=== PATIENT | female | born 1970 | race Caucasian/White ===

== ENCOUNTER 2016-04-29 08:10 | Emergency (ER) | payer BC ==
[2006-07-15 06:13] VITALS: BP 145/87
[~2016-04-29] VITALS: Ht 160 cm; Wt 79.5 kg
[~2016-04-29 08:10] MED LIST: ALEVE COLD PO; AMBIEN 10MG10 MG PO; AMETHYST 20 MCG1 TAB PO; AMITRIPTYLINE H25 M1 PO; AMITRIPTYLINE H50 M1 PO; AMITRIPTYLINE10 MG PO; AMITRIPTYLINE25 MG PO; ATIVAN 1MG T1 MG/TAB PO; BCP TD; CALCITRIOL PO; CARAFATE 1GM1 G PO; CELEXA20 MG PO; CEPHALEXIN500 M1 PO; COBAL1000 MCG/M IM; CYMBALTA 60MG60 MG PO; DECADRON 1MG TAB1 MG PO; DESYREL 50MG50 MG PO; DEXADRENE; DEXEDRINE5 MG; DILAUDID 4MG TAB4 MG PO; ESTRADIOL TD; EXALGO16 MG PO; EXALGO32 PO; EXALGO8 MG PO; EXCEDRIN TENSION HA; FIORICET 325 MG1 TAB PO; FLEXERIL10 MG PO; FLINTSTONES COM1 CT1 PO; FLINTSTONES1 CTB PO; HCTZ 25MG TAB25 MG PO; K-DUR20 MEQ PO; KLONOPIN 1MG1 MG PO; KLOR-CON M2020 MEQ PO; LAMICTAL 25MG T25 MG PO; LAMICTAL XR50 MG PO; LAMICTAL150 MG PO; LASIX 40MG TABL40 MG PO; LEXAPRO20 MG; LIDODERM 5% PATC1 EA TP; LOMOTIL 0.025 M1 TAB PO; LORTAB 7.5/5001 TAB PO; LYRICA; MAG-OX 400400 MG/TAB PO; MELATONIN5 M1; MIRAPEX0.25 MG PO; MOBIC15 MG PO; NORCO 325 MG-101 TAB PO; NORCO 325 MG-51 TAB PO; NORCO 325 MG-7.1 TAB PO; NUVIGIL250 MG PO; OPANA10 MG PO; OS CAL; PERCOCET 325 MG1 TAB PO; PHENERGAN 25 TA25 MG PO; PHENERGAN25 MG RC; PHENTERMINE H37.5 MG PO; POSTURE D PO; PREVACID 30MG30 MG PO; PROTONIX 40MG T40 MG PO; PROVIGIL200 MG PO; REGLAN 10MG10 MG/TAB PO; REGLAN 5MG T5 MG/TAB PO; REMERON30 MG PO; RISPERDAL M-TAB0.25 PO; SEASONIQUE1 TAB PO; SINGULAIR10 MG PO; SYMBALTA; TEMOVATE0.05%; VITAMIN D50000 I2 PO; VOLTAREN GEL 1%1 TU TP; Vitamin B12 IM; WELLBUTRIN 100100 MG PO; ZANTAC 150MG T150 MG PO; ZAROXOLYN 2.52.5 MG PO; ZOFRAN ODT4 MG PO; ZOLOFT 50MG50 MG PO; [UNRECOGNIZED DRUG - OTHER]; [UNRECOGNIZED DRUG - OTHER] PO; [UNRECOGNIZED DRUG - OTHER] PO
[2016-04-29 08:15] VITALS: BP 143/81; PULSE 95; TEMP 98.2
[2016-04-29] MEDS ORDERED: FLEXERIL 1010 MG/TAB PO (09:19)
[2016-04-29] MEDS ORDERED: IBU600 MG PO (09:19)
[2016-04-29] MEDS ORDERED: ULTRAM 50MG TAB50 MG PO (09:19)
== END 2016-04-29 09:38 | disposition home or self-care (01) ==
LOC: COL.ER 08:10
DX: S16.1XXA Strain of muscle, fascia and tendon at neck level, initial encounter (principal); X58.XXXA Exposure to other specified factors, initial encounter; M62.838 Other muscle spasm
CPT/HCPCS: J1885; J2360

== ENCOUNTER 2016-05-04 07:10 | Day surgery (SDC) | payer BC ==
[2006-07-15 06:13] VITALS: BP 145/87
[~2016-05-04] VITALS: Ht 160 cm; Wt 79.5 kg
[~2016-05-04 07:10] MED LIST changes: +FLEXERIL 1010 MG/TAB PO; +IBU600 MG PO; +ULTRAM 50MG TAB50 MG PO
[2016-05-04 07:40] VITALS: BP 143/82; PULSE 78; TEMP 98.4
[2016-05-04 09:31] VITALS: BP 142/89; PULSE 76; TEMP 98.5
[2016-05-04 09:46] VITALS: BP 133/82; PULSE 91
[2016-05-04 10:01] VITALS: BP 137/71; PULSE 93
[2016-05-04 10:16] VITALS: BP 122/68; PULSE 88
== END 2016-05-04 10:35 | disposition home or self-care (01) ==
LOC: SDCO 07:10
DX: K52.9 Noninfective gastroenteritis and colitis, unspecified (principal); K43.9 Ventral hernia without obstruction or gangrene
CPT/HCPCS: J2250; J2405; J3010; J7030

== ENCOUNTER 2016-05-25 16:19 | Emergency (ER) | payer BC ==
[2006-07-15 06:13] VITALS: BP 145/87
[~2016-05-25] VITALS: Ht 160 cm; Wt 77.3 kg
[2016-05-25 16:21] VITALS: BP 159/77; TEMP 99.1
[2016-05-25] MEDS ORDERED: PERCOCET 325 MG1 TA2 PO (18:59)
[2016-05-25 19:12] VITALS: PULSE 72
== END 2016-05-25 19:13 | disposition home or self-care (01) ==
LOC: COL.ER 16:19
DX: M25.512 Pain in left shoulder (principal); W01.198A Fall on same level from slipping, tripping and stumbling with subsequent striking against other object, initial encounter; Y92.009 Unspecified place in unspecified non-institutional (private) residence as the place of occurrence of the external cause
CPT/HCPCS: J1885

== ENCOUNTER → 2016-05-31 | Outpatient (CLI) | payer BC ==
[~2016-05-31] MED LIST changes: +PERCOCET 325 MG1 TA2 PO
== END ==
LOC: COL.RAD 07:30
DX: M75.122 Complete rotator cuff tear or rupture of left shoulder, not specified as traumatic (principal); M19.012 Primary osteoarthritis, left shoulder; Z87.828 Personal history of other (healed) physical injury and trauma

== ENCOUNTER 2021-12-09 06:00 | Emergency (ER) | payer MEDICARE ==
[~2021-12-09] VITALS: Ht 157.5 cm; Wt 72.7 kg
[2021-12-09 06:01] VITALS: TEMP 97.7
[2021-12-09 06:28] LABS: BASO % 0.4 % (0.0-2.0); EOS # 0.1 K/mm3 (0.0-0.7); EOS % 1.4 % (0.0-4.0); GRAN # 7.9 K/mm3 (1.4-6.5); GRAN % 76.6 % (42.2-75.2); HEMOGLOBIN 11.6 g/dl (12.5-16.0); LYMPH # 1.5 K/mm3 (1.2-3.4); MEAN CELL VOLUME 87 fl (80.0-100.0); MEAN CORPUSCULAR HEMOGLOBIN 29 pg (27-31); MEAN CORPUSCULAR HGB CONC 33 g/dl (33.0-37.0); MEAN PLATELET VOLUME 9.3 fl (7.4-10.4); MONO # 0.6 K/mm3 (0.1-0.6); MONO % 6.1 % (1.7-9.3); PLATELET COUNT 243 K/mm3 (130-400); RED BLOOD COUNT 4.04 M/mm3 (4.10-5.30); REDCELL DISTRIBUTION WIDTH-CV 16.1 % (11.5-14.5)
[2021-12-09 06:33] LABS: HEMATOCRIT 35.1 % (37.0-47.0)
[2021-12-09 06:49] LABS: ALBUMIN 2.8 gm/dL (3.5-5.0); BILIRUBIN,TOTAL 1.3 mg/dL (0.2-1.2); CALCIUM 8.4 mg/dL (8.4-10.2); CREATININE, serum 0.73 mg/dL (0.57-1.11); POTASSIUM 3.6 mmol/L (3.5-4.5); TOTAL PROTEIN 5.7 gm/dL (6.2-8.1)
[2021-12-09 07:15] LABS: COLLECTION METHOD CLEAN CATCH
[2021-12-09 07:43] LABS: MUCOUS Present (NOT PRESENT); SQUAMOUS EPITHELIAL 0-2 /hpf (0-10); URINE BACTERIA Rare /hpf (NONE SEEN); URINE RBC 0-2 /hpf (0-2)
[2021-12-09 07:45] LABS: URINE APPEARANCE Cloudy (CLEAR/HAZY); URINE COLOR Yellow (YELLOW)
[2021-12-09 07:46] LABS: URINE GLUCOSE Negative (NEGATIVE); URINE KETONE 2+ (NEGATIVE); URINE PROTEIN(semi-quant) Negative (NEGATIVE)
[2021-12-09 07:48] LABS: URINE BLOOD Negative (NEGATIVE); URINE NITRATE Positive (NEGATIVE); URINE UROBILINOGEN >=8.0 E.U/dL (0.2-1.0)
[2021-12-09] MEDS ORDERED: CEPHALEXIN500 M1 PO (08:19)
[2021-12-09] MEDS ORDERED: ZOFRAN ODT4 MG PO (08:19)
[2021-12-09 08:52] VITALS: BP 127/83; PULSE 87
--- NOTE | 2021-12-09 11:45 | NUR ---
ANASTACIA was called to the ED to assist patient with a medication voucher. Rola called to obtain information on medication names, dosage and cerda. Documentation previously faxed. Information/documenation provided to patient. Nothing further.
== END 2021-12-09 08:55 | disposition home or self-care (01) ==
LOC: COL.ER 06:00
PROVIDERS: Emergency Medicine
DX: R11.2 Nausea with vomiting, unspecified (principal); E86.0 Dehydration; Z88.0 Allergy status to penicillin; Z88.1 Allergy status to other antibiotic agents
CPT/HCPCS: J0696; J1885; J2405; J7030